=== PATIENT | female | born 1965 | race Caucasian/White ===

== ENCOUNTER 2018-09-15 10:38 | Outpatient (REF) | payer OTHER, SELFPAY ==
[2018-09-15 20:37] LABS: Ferritin 52 ng/mL (8-388); Vitamin B12 667 pg/mL (193-986)
== END 2018-09-15 10:58 ==
LOC: NCHCN 10:38
PROVIDERS: PCP Family Medicine; Visit Provider Family Medicine
DX: R53.83 Other fatigue (principal); L98.9 Disorder of the skin and subcutaneous tissue, unspecified
CPT/HCPCS: 82607; 82728; 87070; 87205

== ENCOUNTER 2018-09-23 07:39 | Outpatient (CLI) | payer OTHER, SELFPAY ==
--- NOTE | 2018-09-23 07:49 | DI.US_ITS ---
SYMPTOM/DIAGNOSIS: FIBROID UTERUS AND RUQ PAIN PELVIC ULTRASOUND: Comparison is made with 18 Jan 2013. Trans abdominal and transvaginal exams were performed. The uterus is enlarged, measuring 14.1 x 8.8 x 10.2 cm. There is a large fibroid measuring 10.2 cm in diameter extending from the mid body through the fundal region. It obscures visualization of the endometrial stripe. The right ovary was also not seen. The left ovary appears normal. There is no free fluid. IMPRESSION: 10.2 cm uterine fibroid. ABDOMEN ULTRASOUND: The liver is normal in size and echogenicity. No focal liver lesions or biliary dilatation is seen. The gallbladder has a normal appearance, without evidence of stones or wall thickening. The kidneys, spleen, pancreas and aorta are unremarkable. There is no ascites. IMPRESSION: Negative abdomen ultrasound.
== END 2018-09-23 07:59 ==
PROVIDERS: PCP Family Medicine; Visit Provider Nurse Practitioner Family
DX: R10.11 Right upper quadrant pain (principal); D25.9 Leiomyoma of uterus, unspecified
CPT/HCPCS: 76700; 76830; 76856

== ENCOUNTER 2018-10-01 00:34 | Outpatient (CLI) | payer OTHER, SELFPAY ==
[2018-10-01 14:16] LABS: BUN 23 mg/dL (7-18); CREATININE 0.85 mg/dL (0.55-1.02)
[2018-10-01] MEDS: Gadoterate meglumine 20 ML VIAL 13 ML IVP (14:52)
--- NOTE | 2018-10-01 15:15 | DI.MRI_ITS ---
SYMPTOMS/DIAGNOSIS: FIBROID UTERUS, D25.9, ASSESS FIBROID CHARACTERISTICS PELVIC MRI: MRI examination of the pelvis was performed according to the usual protocol. There is a mildly heterogeneous uterine mass, which is of low signal on T2 weighted imaging, intermediate signal on T1 fat-sat imaging, and low signal on T1 weighted imaging. Post contrast examination shows mild fairly homogeneous enhancement. This is an intrauterine mass and measures about 8-9 cm in diameter in all three planes. The mass lies anterior and superior to the endometrial stripe, projecting superior to the endometrial stripe on the sagittal images, which most clearly define the location of the mass. The findings are consistent in appearance with uterine leiomyoma. The ovaries are difficult to visualize. No pelvic adenopathy seen. No abnormality of the bony pelvis identified. CONCLUSION: Findings consistent with large uterine fibroid, as described above.
== END 2018-10-01 00:54 ==
PROVIDERS: PCP Family Medicine; Visit Provider Obstetrics & Gynecology
DX: D25.9 Leiomyoma of uterus, unspecified (principal); Z13.89 Encounter for screening for other disorder
CPT/HCPCS: 36415; 72197; 84520; 82565

== ENCOUNTER 2018-10-18 12:14 | Outpatient (CLI) | payer OTHER, SELFPAY ==
[2018-10-18 12:51] LABS: HCT 41.4 % (36.0-46.0); HGB 14.2 g/dL (12.0-15.5)
[2018-10-18 13:50] LABS: HCG Quant, Pregnancy < 1 mIU/mL (1-3)
== END 2018-10-18 12:34 ==
PROVIDERS: PCP Family Medicine; Visit Provider Obstetrics & Gynecology
DX: D25.9 Leiomyoma of uterus, unspecified (principal); R10.2 Pelvic and perineal pain; Z01.818 Encounter for other preprocedural examination
CPT/HCPCS: 36415; 86850; 86900; 86901; 84702; 85014; 85018

== ENCOUNTER 2018-10-19 14:15 | Observation (INO) | payer OTHER, SELFPAY ==
[2018-10-19] VITALS (17 sets, daily range): BP systolic 88–121; BP diastolic 38–63; PULSE 47–69; RESP 12–16; TEMP 35.4–37.1; O2SAT 98–100
[2018-10-19] MEDS: Lactated Ringers 1,000 ML 125 ML IV ×4 (08:41→21:10)
[2018-10-19] MEDS: Acetaminophen 325 MG TAB 650 MG PO (09:23)
--- NOTE | 2018-10-19 12:00 | UTER_PTH ---
PATIENT: Maite De Santiago LOC: OBS U#:[id number] AGE/SX: 53/F ROOM: OBS.305 RE10/19/[address]: Jessica Ravi MD : 1965 BED: A DIS: 10/20/2018 SPEC #: [id number] RECD: 10/19/18 17:42 STATUS: TAMAR RELorie #: [id number] CAROL ANN: 10/19/18 12:[address]: Jessica Ravi DEPT: Surgical Specimen RECD BY: Khloe Byrd ENTERED: 10/19/18 17:43 SP TYPE: UTER OTHR DR: Coni Spangler V Tissues: 1 - UTERUS W OR W/O OVARIES(NOT TUMOR/PROLAPSE) Procedures: GROSS AND MICRO LEVEL 5 Comments: [id number]
[2018-10-19] MEDS: oxyCODONE 5 MG TAB PO (18:35)
[2018-10-19] MEDS: Omeprazole 20 MG CAPCR PO (19:52)
[2018-10-19] MEDS: Docusate Sodium 100 MG CAP PO (19:53)
[2018-10-19] MEDS: Ketorolac 30 MG/ML VIAL IVP (19:53)
[2018-10-20] MEDS: Ketorolac 30 MG/ML VIAL IVP ×2 (01:37→08:09)
[2018-10-20] MEDS: oxyCODONE 5 MG TAB PO (02:54)
[2018-10-20 04:10] VITALS: BP 101/49; PULSE 61; RESP 16; TEMP 37.1; O2SAT 99
[2018-10-20] MEDS: Lactated Ringers 1,000 ML 125 ML IV (04:44)
[2018-10-20] MEDS: Docusate Sodium 100 MG CAP PO (08:10)
[2018-10-20] MEDS: Omeprazole 20 MG CAPCR PO (08:10)
[2018-10-20] MEDS: Multivitamin TAB 1 TAB PO (08:38)
[2018-10-20 08:48] VITALS: BP 110/55; PULSE 60; RESP 16; TEMP 36.8; O2SAT 98
--- NOTE | 2018-10-20 08:52 | W.PM.PROGNOT ---
Date of Service Date of service: 10/20/18 Time of Service: 08:52 Assessment and Plan (1) Fibroid uterus: Current visit: No Status: Acute (2) S/P hysterectomy: Current visit: Yes Status: Acute Encourage ambulation. Advance diet as tolerated. Will consider discharge this afternoon if she meets all postoperative milestones. Subjective Interval history since last seen: Doing well this morning. Has not yet ambulated. Pain was moderate last night but well controlled at this time. No fevers or chills. Feels hungry. Exam GI Other: Soft. Appropriately tender. Dressings in place. Other: Vaginal packing removed as well as the palacios catheter. Minimal blood on packing. No active bleeding. Objective Objective Clinical Data: Vital Signs Temperature 98.8 F 10/20/18 04:10 Temperature Source Oral 10/20/18 04:10 Pulse 61 10/20/18 04:10 Pulse Rhythm Regular 10/19/18 23:17 Respiratory Rate 16 10/20/18 04:10 Respiratory Effort 10/19/18 23:17 Respiratory Depth Normal 10/19/18 23:17 Respiratory Pattern Normal 10/19/18 23:17 Blood Pressure 101/49 L 10/20/18 04:10 Pulse Oximetry 99 10/20/18 04:10 Respiratory End-tidal CO2 33 10/19/18 16:10 Oxygen Delivery Method Room Air 10/20/18 04:10 Oxygen Flow Rate 0 10/20/18 04:10 Pain Level 6 10/20/18 08:09 Intake & Output 10/19/18 10/19/18 10/20/18 11:59 23:59 11:59 Intake Total 100 / 4280.833 4180.833 / 4280.833 945.833 / 945.833 Output Total 1875 / 1875 1450 / 1450 Balance 100 / 2405.833 2305.833 / 2405.833 -504.167 / -504.167 Weight 144 lb 2.917 oz Intake: IV 100 / 2600.833 2500.833 / 2600.833 945.833 / 945.833 Oral 1680 / 1680 Output: Urine 1275 / 1275 1450 / 1450 Estimated Blood Loss 600 / 600 Other: Urine Color Yellow Light Rohini Yellow Urine Appearance Clear Clear Clear Urine Odor Normal Emesis Description None Voiding Methods Indwelling Catheter
--- NOTE | 2018-10-21 16:23 | ROE_ITS ---
DATE OF PROCEDURE: October 19, 2018 PREOPERATIVE DIAGNOSIS: Uterine fibroids, pelvic pain, and cystocele. POSTOPERATIVE DIAGNOSIS: Same. PROCEDURE: Laparoscopic-assisted vaginal hysterectomy, anterior repair. SURGEON: Jessica Ravi M.D. ACID PAINTER: Wyatt Reyes M.D. ANESTHESIA: General. COMPLICATIONS: None. ESTIMATED BLOOD LOSS: Approximately 300 cc. FLUIDS: Per Anesthesia records. FINDINGS: Enlarged fibroid uterus and second-degree cystocele. PROCEDURE: The patient was taken to the Operating Room where she was properly identified. She was t hen placed on the operating table in a dorsal supine position and general anesthesia was induced with out difficulty. She was then placed in the dorsal lithotomy position and prepped and draped in garret l sterile fashion. A formal time-out procedure was then performed confirming patient and procedure. A Hills catheter was placed. A bivalve speculum was placed and a uterine manipulator was advanced w ithout difficulty. The surgeon changed her gloves and attention was then turned to the abdominal portion of the procedur e. An infraumbilical injection of 1% lidocaine was made. A 5-mm incision was made in the skin. The Veress needle was placed intraperitoneally without difficulty. The intraperitoneal location was con firmed with a fluid-filled syringe and a drop in pressure. The abdomen was then insufflated with CO2 gas, the Veress needle removed, and a 5-mm port advanced under direct visualization. Attention was then turned to the right and left lower quadrants where two 5-mm ports were placed. Th e first was made in the right lower quadrant by first injecting with 1% lidocaine, making a 5-mm inci miguel, and advancing the port under direct visualization. Attention was then turned to the opposite s tatum and again, in a similar fashion, it was injected with 1% lidocaine, a 5-mm incision was made, and the port was advanced under direct visualization. The patient was placed in Trendelenburg. Attenti on was then turned to the right round ligament which was cauterized x3 and cut. The anterior uterove sical reflection was difficult to see due to the size of the uterus. Thus, attention was then turned to the right uteroovarian ligament which was cauterized x2 and cut. The broad ligament was taken do wn to the midportion of the uterus by first cauterizing and then cutting using the LigaSure. Attenti on was then turned to the right round ligament which was cauterized x3, cut, and the bladder flap ope ranjit anteriorly. Attention was then turned to the left uteroovarian ligament which was cauterized x3, cut, and the broad ligament taken down to the midportion of the uterus. Attention was then turned to the vaginal portion of the procedure. The uterine manipulator was remove d. A posterior weighted speculum was placed posteriorly. were retracted and the anterior of the cervix was visualized, grasped on the anterior lip with the single-tooth tenaculum, and broug ht to its full descent. Injection of 1% lidocaine with epinephrine was then made in a paracervical f ashion. The cervix was incised using the Bovie cautery. The vagina was then dissected away from the cervix using the Farias scissors. The anterior vesicouterine reflection was then identified and an an terior colpotomy was made without difficulty. A Klever was then placed anteriorly to move the bladde r well away from the operative field. Attention was then turned posteriorly where the peritoneum was then grasped and entered sharply. The short weighted speculum as traded for a long weighted speculum. The uterosacrals were identified bi laterally, cross clamped with curved Rosy clamps, cut and suture ligated in a Rosy fashion with # 0 Vicryl bilaterally. The remainder of the paracervical tissue was then taken down in a series of cr oss clamping, cut and suture ligating. This was performed to the level of the uterine vessels bilate rally. The uterine vessels were cross clamped x2 perpendicular to the uterus, cut, and suture ligate d x2. The uterus was then removed in a series of both bivalve and wedge resection until the entire u terus was removed. The pedicles were then inspected and found to be hemostatic. Attention was then turned to the anterior colporrhaphy portion of the procedure. The distal vagina w as tagged laterally with Husam clamps. The midline vaginal epithelium was injected subcutaneously w ith 1% lidocaine with epinephrine. A lateral incision was made with a 15 blade. The vaginal epithel ium was then undermined using the Metzenbaum scissors to approximately 1 cm from the urethra. The bl adder was dissected well away from the vaginal epithelium. The paravesicular fascia was then identif ied and reapproximated with #2-0 Vicryl across the midline in an interrupted fashion. This was perfo rmed the entire length of the vagina. The vaginal epithelium was trimmed and the vagina was closed w ith #0 Vicryl in a running locked fashion. The cuff was then closed from the right apex to the left apex with #0 Vicryl in a running locked fashion. A Hills catheter was left in situ. A vaginal pack impregnated with bacitracin was placed. The surgeon changed her glove and attention then was turned back to the laparoscopic portion of the p rocedure. The abdomen and pelvis was copiously irrigated and the irrigant removed. Hemostasis was r econfirmed. The abdomen was desufflated with CO2 gas. Upon low pressure there was no evidence of bl eeding. The ports were removed and closed with #4-0 Vicryl in a subcuticular fashion. Sponge, lap, needle, and instrument counts were correct x2. A cystoscopy was then performed confirming no injury to the bladder, no blood clot, and bilateral ure teral jets. The cystoscopy was concluded. Again, the sponge, lap, needle, and instrument counts wer e correct x2. The patient was taken to the Recovery Room in stable condition.
== END 2018-10-20 12:40 | disposition home or self-care (01) | DRG 743 ==
LOC: OBS 10-20 00:56
PROVIDERS: Admitting Provider Obstetrics & Gynecology; PCP Family Medicine; Visit Provider Obstetrics & Gynecology
PROC: 0UT9FZZ Resection of Uterus, Via Natural or Artificial Opening With Percutaneous Endoscopic Assistance (ICD-10-PCS; CPT 58553; principal; 2018-10-19 09:00)
DX: D25.9 Leiomyoma of uterus, unspecified (principal); N85.02 Endometrial intraepithelial neoplasia [EIN]; N87.9 Dysplasia of cervix uteri, unspecified; N88.8 Other specified noninflammatory disorders of cervix uteri; Z98.51 Tubal ligation status; Z90.710 Acquired absence of both cervix and uterus; R10.2 Pelvic and perineal pain; N81.10 Cystocele, unspecified
CPT/HCPCS: 58553; 57240; 52000; 99233; 88307; J0690; J1100; J1885; J2250; J2405

== ENCOUNTER 2018-11-23 01:46 | Outpatient (CLI) | payer OTHER, SELFPAY ==
--- NOTE | 2018-11-23 16:00 | DI.MAMMO_ITS ---
SYMPTOMS/DIAGNOSIS: SCREENING, Z12.31 MAMMOGRAM: Mammograms were interpreted according to the usual protocol including computer analysis with CAD system, tomosynthesis and C view imaging. The breast tissue is of moderate radiodensity. There is no evidence of a mass. There are no suspicious calcifications and there has been no significant interval change when compared with prior images. SUMMARY: No evidence of malignancy, Category I, yearly screening mammography is recommended. Breast density Category B. SA ASSESSMENT OF FINDINGS: Negative. Category 1. Patient will receive a letter notifying them of these results. BI-RADS category B. There are scattered areas of fibroglandular density.
== END 2018-11-23 02:06 ==
PROVIDERS: PCP Family Medicine; Visit Provider Nurse Practitioner Family
DX: Z12.31 Encounter for screening mammogram for malignant neoplasm of breast (principal)
CPT/HCPCS: 77063; 77067

== ENCOUNTER 2019-05-26 03:12 | Outpatient (CLI) | payer OTHER, SELFPAY ==
--- NOTE | 2019-05-26 09:25 | DI.MRI_ITS ---
EXAM: MR CERVICAL SPINE WO CLINICAL HISTORY: NECK PAIN M54.2. TECHNIQUE: Multiplanar multisequence MRI was performed. COMPARISON: No exams were available for comparison FINDINGS: MR examination cervical spine was performed utilizing usual protocol. Images obtained through the po sterior fossa are unremarkable. Spinal cord is of normal diameter and shows normal signal throughout . There is no bony signal abnormality seen. No disc herniation identified. No central canal spinal stenosis or neural foraminal stenosis. IMPRESSION: Negative cervical spine MRI
== END 2019-05-26 03:32 ==
PROVIDERS: PCP Family Medicine; Visit Provider Family Medicine
DX: M54.2 Cervicalgia (principal)
CPT/HCPCS: 72141

== ENCOUNTER 2020-01-17 13:45 | Outpatient (REF) | payer OTHER, SELFPAY ==
[2020-01-17 19:43] LABS: HCT 40.8 % (36.0-46.0); HGB 13.9 g/dL (12.0-15.5); Mean Corp. HGB Concentration 34.1 g/dL (32.0-36.0); Mean Corpuscular Hemoglobin 31.3 pg (27.0-33.0); Mean Corpuscular Volume 91.9 fL (80-95); Mean Platelet Volume 9.9 fL (8.0-11.0); Platelet Count 266 x1000/uL (130-400); RBC 4.44 m/cumm (4.00-5.20); RBC Distribution Width 11.7 % (11.7-14.6); White Blood Cell Count 4.93 k/cumm (4.4-10.8)
[2020-01-17 20:09] LABS: C-Reactive Protein 0.19 mg/dL (0.0-0.3); TSH (W/Ref FT4) 0.91 uIU/mL (0.36-3.74)
[2020-01-17 20:31] LABS: ESR 12 mm/hr (0-30)
[2020-01-18 16:50] LABS: Rheumatoid Factor <8.6 IU/mL (<12.0)
[2020-01-19 11:02] LABS: Hepatitis C Ab w Rflx HCV PCR Negative (Negative)
[2020-01-19 11:06] LABS: Lyme Ab w Rflx to Lyme Confirm Negative (Negative)
[2020-01-20 14:58] LABS: ANA Interpretation Negative (Negative)
[2020-01-20 22:50] LABS: Anaplasma phagocytophilum Negative (Negative); B. miyamotoi PCR Negative (Negative); Babesia divergens/MO-1 Negative (Negative); Babesia duncani Negative (Negative); Babesia microti Negative (Negative); Ehrlichia chaffeensis Negative (Negative); Ehrlichia ewingii/canis Negative (Negative); Ehrlichia muris eauclairensis Negative (Negative)
== END 2020-01-17 14:05 ==
LOC: NCHCN 13:45
PROVIDERS: PCP Family Medicine; Visit Provider Family Medicine
DX: M25.50 Pain in unspecified joint (principal); M79.646 Pain in unspecified finger(s); L93.0 Discoid lupus erythematosus; Z11.59 Encounter for screening for other viral diseases
CPT/HCPCS: 85027; 85652; 86803; 87798; 84443; 86038; 86140; 86431; 86618

== ENCOUNTER 2020-02-28 03:55 | Outpatient (CLI) | payer OTHER, SELFPAY ==
--- NOTE | 2020-03-20 13:01 | ZIOP_ITS ---
Date of service: 03/20/20 Time of Service: 13:01 ZIO Patch Payroll Supervisor Referring Provider:: Vazquze Fox Indications:: Altered mental status Note: This is a 14-day ZIO patch placed for the indication noted above The rhythm throughout was sinus. Average heart rate was 68. Minimum heart rate was 45 and maximum 157 There were rare atrial and ventricular ectopic beats There was no atrial fibrillation. There were no pauses. There were was no high-grade AV block There was one 4 beat atrial run Patient symptoms of fluttering and racing, dizziness, did not correspond to any dysrhythmia Patient symptoms of skipped beats corresponded to atrial and ventricular ectopics
== END 2020-02-28 04:15 ==
PROVIDERS: PCP Family Medicine; Visit Provider Physician Assistant Medical
DX: R41.82 Altered mental status, unspecified (principal); I49.1 Atrial premature depolarization; I49.3 Ventricular premature depolarization
CPT/HCPCS: 0296T

== ENCOUNTER 2020-04-24 00:54 | Outpatient (CLI) | payer OTHER, SELFPAY ==
--- NOTE | 2020-04-24 | DI.US_ITS ---
APPROVED REPORT EXAM: Comprehensive 2D, Doppler, and color-flow Echocardiogram Patient Location: Out-Patient Phone Representative: Wendy Abdi RDCS (AE) Indications: Altered Consciousness Other Information Study Quality: Good Conclusion Normal left ventricular wall thickness and chamber size. Estimated ejection fraction is 60%. There are no segmental wall motion abnormality Normal right ventricular size and systolic function Both left and right atrium are normal in size There are no structural valvular abnormalities There is trace physiologic mitral, tricuspid and pulmonic regurgitation Overall, normal echocardiogram Wall motion Left Ventricle The left ventricle is normal size. There is normal left ventricular wall thickness. There is normal L V segmental wall motion. There is no ventricular septal defect visualized. LVEF is 60%. Right Ventricle The right ventricle is normal size. The right ventricular systolic function is normal. The RVSP is 24 .8mmHg. Atria The left atrium size is normal. The right atrium size is normal. The interatrial septum is intact wit h no evidence for an atrial septal defect. Aortic Valve The aortic valve is normal in structure. Aortic valve is trileaflet. There is no aortic valvular sten osis. No aortic regurgitation is present. Mitral Valve The mitral valve is normal in structure. No evidence of mitral valve stenosis. Trace mitral regurgita tion. Tricuspid Valve The tricuspid valve is normal in structure. There is no tricuspid valve stenosis. Trace tricuspid reg urgitation. Pulmonic Valve The pulmonary valve is normal in structure. There is no pulmonic valvular stenosis. Trace pulmonic re gurgitation. Great Vessels The aortic root is normal in size. The ascending aorta is normal in size. Aortic arch is normal in ca liber. IVC is normal in size and collapses >50% with inspiration. Pericardium There is no pericardial effusion. 2D Dimensions IVSD d PLAX 0.84 cm F: 0.6-1.0 LV Vol A2C d MOD 97.3 mL LVPW d PLAX 0.84 cm F: 0.6 - 1.0 LV Vol A4C d MOD 99.7 mL LVID d PLAX 4.53 cm F: 3.8 - 5.2 LA vol/ BSA A2C s A-L 39.7 mL/m2 LVDs 2.75 cm F: 2.2 - 3.5 LA vol/ BSA A4C s A-L 29.9 mL/m2 Ao Root d 2.32 cm F: 2.7 - 3.3 LA Vol/ BSA Biplane s A-L 35.4 mL/m2 RA Area A4C 19.28 cm2 LA Area A4C s MOD 18.97 cm2 RA Vol/ BSA A4C s A-L 33.0 mL/m2 LA Area A2C s MOD 21.30 cm2 Ao Asc Diam d 2.78 cm F: 2.3 - 3.1 LV EF A4C MOD 60.0 % LV EF Teichholz 69.3 % LV EF A2C MOD 59.4 % LVEF (Alfonso's) 58.60 % F: 54 - 74 LV EF Biplane MOD 58.6 % LV Volume 77.52 mL F: 46 - 106 SV 58.23 mL LV Volume Index 43.55 mL/m2 F: 29 - 61 SV Index 32.62 mL/m2 LV Vol Biplane MOD 99.4 mL FS 38.80 % M-Mode TAPSE 2.63 cm (M/F) >1.7 LV Diastology MV E' medial 0.116 (>0.07 m/s) E/A Ratio 1.6 LV E/e MED 8.05 (<14) MV E Vmax 0.94 (0.4-1.3 m/s) MV E' lateral 0.129 (>0.1 m/s) MV A Vmax 0.60 (0.4-1.3 m/s) LV E/e LAT 7.25 (<14) MV E/A Ratio 1.46 MV E/E' medial 8.09 MV E/E' lateral 7.27 Aortic Valve LVOT Area 2.82 cm2 AoV Area Vmax 2.28 cm2 LVOT Vmax 1.26 m/s AoV Area/ BSA (Vmax) 1.28 cm2/m2 LVOT Mean Mike. 0.77 m/s VAN Mean Mike. 1.94 cm2 LVOT Peak Grad 6.4 mmHg VAN Mean Mike. Index 1.09 cm2/m2 LVOT Mean Grad 2.8 mmHg LVOT VTI 0.289 m LVOT Diam s 1.85 cm AoV Vmax 1.55 m/s Velocity Ratio 0.81 AoV Mean Mike. 1.11 m/s AoV Peak Grad 9.7 mmHg LVOT SV 81.43 mL AoV Mean Grad 5.4 mmHg AoV VTI 0.360 m AoV Area VTI 2.26 cm2 AoV Area/ BSA (VTI) 1.27 cm/m2 Mitral Valve MV DT 232 (160-240 msec) MV PHT 67 msec MV Area PHT 3.27 cm2 Pulmonary Valve PV Vmax 1.27 (0.5-1.5 m/s) RVOT Peak Gr. 3.56 mmHg PV Peak Grad 6.5 mmHg RVOT Mean Gr. 1.80 mmHg PV Mean Grad 3.2 mmHg RVOT VTI 0.208 m PV VTI 0.279 m RVOT Vmax 0.94 m/s Tricuspid Valve TR Peak Grad 21.8 mmHg TR Vmax 2.34 m/s RA Pressure 3.00 mmHg RVSP (TR) 24.8 mmHg
== END 2020-04-24 01:14 ==
PROVIDERS: PCP Family Medicine; Visit Provider Family Medicine
DX: R41.82 Altered mental status, unspecified (principal)
CPT/HCPCS: 93306

== ENCOUNTER 2020-08-16 00:04 | Outpatient (CLI) | payer OTHER, SELFPAY ==
--- NOTE | 2020-08-16 | DI.MAMMO_ITS ---
EXAM: MG MAMMO SCREENING CLINICAL HISTORY: SCREENING, [facility],Z00.00 TECHNIQUE: Bilateral full field digital CC and MLO mammographic images were obtained with 3D tomosyn thesis and utilizing computer aided detection (CAD). COMPARISON: Available for comparison. FINDINGS: Masses/Architectural Distortion: None seen. Microcalcifications: No suspicious pleomorphic-type are seen. Skin Thickening/Nipple Retraction: None. IMPRESSION: 1. No significant interval change with no specific features of malignancy noted. 2. Unless there is more urgent need, screening mammography is recommended, as per [employer] guidelines. BI-RADS Category 1 - Negative Breast Density - Category C - Heterogeneously dense Breast density category C or D implies that the patient has dense breast tissue. Dense breast tissue is very common and is not abnormal but dense breast tissue can make it harder to find cancer on a ma mmogram. Also, dense breast tissue may increase their breast cancer risk. This information about the result of the mammogram report was provided to the patient to raise their awareness. Use this report when you speak with the patient about their risks for breast cancer, which includes their family hist ory. At that time, you may recommend for more screening tests (Ultrasound or MRI) as they might be us eful based on their risk. A negative radiographic report should not delay biopsy if a dominant or clinically suspicious mass is present. Up to ten percent of cancers are not identified on mammography. A negative report may reinforce clinical impression. Adenosis and dense breasts may obscure an underlying neoplasm. False positive reports average 6 to 10%. Patient will receive a letter notifying them of these results.
== END 2020-08-16 00:24 ==
PROVIDERS: PCP Family Medicine; Visit Provider Family Medicine
DX: Z12.31 Encounter for screening mammogram for malignant neoplasm of breast (principal); Z00.00 Encounter for general adult medical examination without abnormal findings
CPT/HCPCS: 77063; 77067

== ENCOUNTER 2020-08-20 16:34 | Outpatient (REF) | payer OTHER, SELFPAY ==
[2020-08-22 14:49] LABS: COVID-19 RT-PCR UVMMC Result Negative (Negative)
== END 2020-08-20 16:54 ==
LOC: NCHCN 16:34
PROVIDERS: PCP Family Medicine; Visit Provider Family Medicine
DX: Z20.828 Contact with and (suspected) exposure to other viral communicable diseases (principal)
CPT/HCPCS: U0003

== ENCOUNTER 2020-09-03 16:16 | Outpatient (REF) | payer OTHER, SELFPAY ==
[2020-09-04 21:45] LABS: COVID-19 RT-PCR Result NEGATIVE (Negative)
== END 2020-09-03 16:36 ==
LOC: NCHCN 16:16
PROVIDERS: PCP Family Medicine; Visit Provider Nurse Practitioner Family
DX: Z11.52 Encounter for screening for COVID-19 (principal)
CPT/HCPCS: U0003

== ENCOUNTER 2020-11-14 11:16 | Outpatient (REF) | payer OTHER, SELFPAY ==
--- NOTE | 2020-11-14 10:10 | SKI_PTH ---
PATIENT: Maite De Santiago LOC: [facility] U#:[id number] AGE/SX: 55/F ROOM: RE11/14/[address]: DILIP Hollins : 1965 BED: DIS: 11/14/2020 SPEC #: [id number] RECD: 11/15/20 12:21 STATUS: TAMAR RELorie #: [id number] CAROL ANN: 11/14/20 10:[address]: Nik Napoles DEPT: Surgical Specimen RECD BY: Khloe Byrd ENTERED: 11/15/20 12:22 SP TYPE: BRYSON RUIZ DR: Fausto Fox Tissues: 1 - SKIN BIOPSY(SHAVE/PUNCH) 2 - SKIN BIOPSY(SHAVE/PUNCH) Procedures: SKIN LEVEL 4 Comments: [id number]
== END 2020-11-14 11:17 | disposition home or self-care (01) ==
LOC: LBN 11:16
PROVIDERS: PCP Family Medicine; Visit Provider Physician Assistant
DX: L73.8 Other specified follicular disorders (principal); L72.3 Sebaceous cyst
CPT/HCPCS: 88305

== ENCOUNTER 2021-03-01 19:43 | Outpatient (CLI) | payer OTHER, SELFPAY ==
--- NOTE | 2021-03-01 | DI.RAD_ITS ---
Exam(s) XR KNEE LT 3V AP,LAT,CARINA EXAM: XR KNEE LT 3V AP,LAT,CARINA CLINICAL HISTORY: LT KNEE PAIN M25.562. TECHNIQUE: 2D digital imaging was performed. COMPARISON: No exams were available for comparison FINDINGS: BONES: No acute fracture is present. No bony destructive lesion is seen. JOINTS: The knee is normally aligned. No joint effusion is seen. SOFT TISSUE: Normal. IMPRESSION: Normal radiographs of the left knee. DATA REPOSITORY: RADIATION DOSE DELIVERED:
== END 2021-03-01 20:03 ==
PROVIDERS: PCP Family Medicine; Visit Provider Nurse Practitioner Family
DX: M25.562 Pain in left knee (principal)
CPT/HCPCS: 73562

== ENCOUNTER 2021-07-15 14:56 | Outpatient (REF) | payer OTHER, SELFPAY ==
[2021-07-17 15:04] LABS: COVID-19 RT-PCR UVMMC Result Negative (Negative)
== END 2021-07-15 14:57 | disposition home or self-care (01) ==
LOC: NCHCN 14:56
PROVIDERS: PCP Family Medicine; Visit Provider Family Medicine
DX: Z20.822 Contact with and (suspected) exposure to COVID-19 (principal)
CPT/HCPCS: U0003

== ENCOUNTER 2021-08-12 14:59 | Outpatient (REF) | payer OTHER, SELFPAY ==
[2021-08-13 20:15] LABS: COVID-19 RT-PCR UVMMC Result Negative (Negative)
== END 2021-08-12 15:00 | disposition home or self-care (01) ==
LOC: NCHCN 14:59
PROVIDERS: PCP Family Medicine; Visit Provider Family Medicine
DX: Z20.822 Contact with and (suspected) exposure to COVID-19 (principal)
CPT/HCPCS: U0003

== ENCOUNTER 2021-08-20 10:19 | Outpatient (REF) | payer OTHER, SELFPAY ==
[2021-08-21 15:08] LABS: COVID-19 RT-PCR UVMMC Result Negative (Negative)
== END 2021-08-20 10:20 | disposition home or self-care (01) ==
LOC: NCHCN 10:19
PROVIDERS: PCP Family Medicine; Visit Provider Physician Assistant Medical
DX: Z20.822 Contact with and (suspected) exposure to COVID-19 (principal)
CPT/HCPCS: U0003

== ENCOUNTER 2021-08-30 15:04 | Outpatient (REF) | payer OTHER, SELFPAY ==
[2021-09-01 19:11] LABS: COVID-19 RT-PCR UVMMC Result Negative (Negative)
== END 2021-08-30 15:05 | disposition home or self-care (01) ==
LOC: NCHCN 15:04
PROVIDERS: PCP Family Medicine; Visit Provider Physician Assistant Medical
DX: Z20.822 Contact with and (suspected) exposure to COVID-19 (principal)
CPT/HCPCS: U0003

== ENCOUNTER 2022-12-08 00:45 | Outpatient (CLI) | payer BC, SELFPAY ==
--- NOTE | 2022-12-08 18:00 | DI.MAMMO_ITS ---
Exam(s) MAMMO SCREENING EXAM: MAMMO SCREENING CLINICAL HISTORY: SCREENING FOR BREAST CANCER Z12.31 PREVENTIVE Z00.00 TECHNIQUE: Bilateral full field digital CC and MLO mammographic images were obtained with 3D tomosyn thesis and utilizing computer aided detection (CAD). COMPARISON: Available for comparison. FINDINGS: Masses/Architectural Distortion: None seen. Microcalcifications: No suspicious pleomorphic-type are seen. Skin Thickening/Nipple Retraction: None. IMPRESSION: 1. No significant interval change with no specific features of malignancy noted. 2. Unless there is more urgent need, screening mammography is recommended, as per [employer] guidelines. BI-RADS Category 1 - Negative Breast Density - Category B - Scattered areas of fibroglandular density Breast density category C or D implies that the patient has dense breast tissue. Dense breast tissue is very common and is not abnormal but dense breast tissue can make it harder to find cancer on a ma mmogram. Also, dense breast tissue may increase their breast cancer risk. This information about the result of the mammogram report was provided to the patient to raise their awareness. Use this report when you speak with the patient about their risks for breast cancer, which includes their family hist ory. At that time, you may recommend for more screening tests (Ultrasound or MRI) as they might be us eful based on their risk. A negative radiographic report should not delay biopsy if a dominant or clinically suspicious mass is present. Up to ten percent of cancers are not identified on mammography. A negative report may reinforce clinical impression. Adenosis and dense breasts may obscure an underlying neoplasm. False positive reports average 6 to 10%. Patient will receive a letter notifying them of these results.
== END 2022-12-08 01:05 ==
PROVIDERS: PCP Family Medicine; Visit Provider Nurse Practitioner Family
DX: Z12.31 Encounter for screening mammogram for malignant neoplasm of breast (principal)
CPT/HCPCS: 77063; 77067

== ENCOUNTER 2022-12-30 18:09 | Outpatient (REF) | payer BC, SELFPAY ==
[2022-12-30 15:35] LABS: HCT 41.3 % (36.0-46.0); HGB 14.1 g/dL (11.2-15.7); MCH 30.4 pg (27.0-33.0); MCHC 34.1 % (32.0-36.0); MCV 89 fL (80-95); MPV 9.5 fL (8.0-11.0); Platelet Count 295 10^3/uL (130-400); RBC 4.64 10^6/uL (3.93-5.22); RDW 11.9 % (11.7-14.6); RDW-SD 38.1 fL
[2022-12-30 16:12] LABS: Hemoglobin A1C 5.2 % (<5.7)
[2022-12-30 16:23] LABS: Anion Gap 9.6 mmol/L (3-11); BUN 13 mg/dL (7-18); CO2 29.4 mmol/L (21.0-32.0); CREATININE 0.8 mg/dL (0.55-1.02); Calcium 9.6 mg/dL (8.5-10.1); Calculated LDL 92 mg/dL (<100); Chloride 103 mmol/L (98-107); Cholesterol 190 mg/dL (<200); Estimated GFR 85.89 (mL/min/1.73m2); Ferritin 94 ng/mL (8-252); Glucose 119 mg/dL (74-106); HDL Cholesterol 87 mg/dL (40-60); Potassium 3.7 mmol/L (3.5-5.1); Sodium 142 mmol/L (136-145); TSH (W/Ref FT4) 1.03 uIU/mL (0.36-3.74); Triglyceride 57 mg/dL (<150); Vitamin D 25 Total 42.8 ng/mL (30-100)
== END 2022-12-30 18:10 | disposition home or self-care (01) ==
LOC: NCHCN 18:09
PROVIDERS: PCP Family Medicine; Visit Provider Family Medicine
DX: R53.83 Other fatigue (principal); G47.00 Insomnia, unspecified; Z13.1 Encounter for screening for diabetes mellitus; Z13.220 Encounter for screening for lipoid disorders; Z00.00 Encounter for general adult medical examination without abnormal findings; Z13.0 Encounter for screening for diseases of the blood and blood-forming organs and certain disorders involving the immune mechanism; Z13.21 Encounter for screening for nutritional disorder
CPT/HCPCS: 80048; 80061; 82306; 85027; 82728; 83036; 84443

== ENCOUNTER 2023-04-23 09:46 | Outpatient (REF) | payer BC, SELFPAY | END 2023-04-23 09:47 | disposition home or self-care (01) | LOC: NCHCN 09:46 | PROVIDERS: PCP Family Medicine; Visit Provider Nurse Practitioner Family | DX: R30.0 Dysuria (principal) | CPT/HCPCS: 87086 ==

== ENCOUNTER 2024-10-04 13:17 | Outpatient (REF) | payer OTHER, SELFPAY ==
[2024-10-04 15:07] LABS: HCT 40.4 % (36.0-46.0); HGB 13.7 g/dL (11.2-15.7); MCH 30.5 pg (27.0-33.0); MCHC 33.9 % (32.0-36.0); MCV 90 fL (80-95); MPV 9.6 fL (8.0-11.0); Platelet Count 262 10^3/uL (130-400); RBC 4.49 10^6/uL (3.93-5.22); RDW 12.4 % (11.7-14.6); RDW-SD 40.5 fL; WBC 4.77 10^3/uL (4.4-10.8)
[2024-10-04 15:31] LABS: ALT 23 U/L (14-59); AST 22 U/L (15-37); Alkaline Phosphatase 92 U/L (46-116); Anion Gap 5.5 mmol/L (3-11); BUN 14 mg/dL (7-18); Bilirubin, Total 0.31 mg/dL (0.2-1.0); CO2 32.5 mmol/L (21.0-32.0); CREATININE 0.7 mg/dL (0.55-1.02); Calcium 9.5 mg/dL (8.5-10.1); Calculated LDL 85 mg/dL (<100); Chloride 106 mmol/L (98-107); Cholesterol 183 mg/dL (<200); Estimated GFR 99.57 (mL/min/1.73m2); Glucose 95 mg/dL (74-106); HDL Cholesterol 88 mg/dL (40-60); Potassium 3.7 mmol/L (3.5-5.1); Sodium 144 mmol/L (136-145); TSH 1.53 uIU/mL (0.36-3.74); Total Protein 8.1 g/dL (6.4-8.2); Triglyceride 51 mg/dL (<150)
[2024-10-04 15:52] LABS: FREE T4 0.95 ng/dL (0.76-1.46)
[2024-10-04 15:55] LABS: Hemoglobin A1C 5.6 % (<5.7)
== END 2024-10-04 13:18 | disposition home or self-care (01) ==
LOC: NCHCN 13:17
PROVIDERS: PCP Family Medicine; Visit Provider Family Medicine
DX: Z00.00 Encounter for general adult medical examination without abnormal findings (principal)
CPT/HCPCS: 80053; 80061; 85027; 83036; 84439; 84443

== ENCOUNTER 2024-10-19 02:02 | Outpatient (CLI) | payer OTHER, SELFPAY ==
--- NOTE | 2024-10-19 | DI.MAMMO_ITS ---
Exam(s) MAMMO SCREENING EXAM: MAMMO SCREENING CLINICAL HISTORY: SCREENING, Z12.31 TECHNIQUE: Mammograms were interpreted according to the usual protocol including computer analysis w [employer] CAD system, tomosynthesis and C-view imaging. COMPARISON: 2014 through 2022 FINDINGS: The breasts are composed of scattered fibroglandular densities, Breast Density category B. No suspicious masses or suspicious microcalcifications are seen. No skin thickening or abnormal axillary lymph nodes are seen. There has been no significant change from prior exams. IMPRESSION: BI-RADS Category 1, Negative mammogram Yearly screening mammography is recommended. Breast Density - Category B, scattered fibroglandular densities. A negative radiographic report should not delay biopsy if a dominant or clinically suspicious mass is present. Up to ten percent of cancers are not identified on mammography. A negative report may reinforce clinical impression. Adenosis and dense breasts may obscure an underlying neoplasm. False positive reports average 6 to 10%. Patient will receive a letter notifying them of these results.
== END 2024-10-19 02:22 ==
LOC: DI 02:02
PROVIDERS: PCP Family Medicine; Visit Provider Family Medicine
DX: Z12.31 Encounter for screening mammogram for malignant neoplasm of breast (principal); R92.323 Mammographic fibroglandular density, bilateral breasts
CPT/HCPCS: 77063; 77067

== ENCOUNTER 2025-06-27 11:17 | Outpatient (REF) | payer OTHER, SELFPAY ==
[2025-06-27 16:14] LABS: Anion Gap 6.4 mmol/L (3-11); BUN 11 mg/dL (7-18); CO2 30.6 mmol/L (21.0-32.0); Calcium 9.8 mg/dL (8.5-10.1); Chloride 101 mmol/L (98-107); Ferritin 158 ng/mL (8-252); Glucose 86 mg/dL (74-106); Potassium 4.6 mmol/L (3.5-5.1); Sodium 138 mmol/L (136-145)
== END 2025-06-27 11:18 | disposition home or self-care (01) ==
LOC: NCHCN 11:17
PROVIDERS: PCP Family Medicine; Visit Provider Family Medicine
DX: G47.00 Insomnia, unspecified (principal); E66.3 Overweight
CPT/HCPCS: 80048; 82728